=== PATIENT | female | born 1965 | race Caucasian/White ===

== ENCOUNTER 2023-07-02 09:06 | Outpatient (REF) | payer BC, SELFPAY ==
[2023-07-02 09:51] LABS: Estimated Average Glucose 131 mg/dL; Hemoglobin A1c % 6.2 % (<6.0)
[2023-07-02 10:22] LABS: Syphilis Screen Nonreactive (Nonreactive)
[2023-07-02 10:42] LABS: Vitamin B12 > 2000 pg/mL (200-900)
[2023-07-03 09:49] LABS: Lyme Abs Screen <0.90 index
[2023-07-04 12:44] LABS: IgA 556 mg/dL (47-310); IgG 1259 mg/dL (600-1640); IgM 138 mg/dL (50-300)
[2023-07-07 11:43] LABS: Vitamin B1 539 nmol/L (8-30)
== END 2023-07-02 09:07 | disposition home or self-care (01) ==
LOC: HO.LAB 09:06
PROVIDERS: Visit Provider Psychiatry & Neurology Neurology
DX: E11.40 Type 2 diabetes mellitus with diabetic neuropathy, unspecified (principal)
CPT/HCPCS: 36415; 82607; 82746; 82784; 83036; 84425; 86334; 86617; 86618; 86780